=== PATIENT | female | born 1950 | race Hispanic/Latino ===

== ENCOUNTER 2019-03-27 15:24 | Emergency (ER) | payer MEDICARE ==
[~2019-03-27] VITALS: Ht 157.5 cm; Wt 79.0 kg
--- OUTSIDE RECORDS SUMMARY | 2019-03-27 15:27 | XMS REPORT | Clinical Summary ---
Author Author MARCIA [facility] Organization [facility] Address Unknown Phone Unavailable Care Team Providers Care Captain Room Service Name Role Phone Keyonna Mckeon MD PCP Unavailable Allergies No Known Allergies Medications End Date Status Medication Sig Dispensed Refills Start Date Active lisinopril Take 2.5 mg 0 (PRINIVIL,ZESTRIL) 2.5 MG by mouth tablet daily. Active omeprazole (PRILOSEC) 40 Take 40 mg by 0 MG capsule mouth daily. Active albuterol HFA (VENTOLIN Inhale 1 puff 0 HFA) 90 mcg/actuation by mouth via inhaler inhaler every 4 (four) hours as needed for Wheezing or Shortness of Breath. Active cholecalciferol (VITAMIN Take 1,000 0 D3) 1,000 unit tablet Units by mouth daily. Active cyanocobalamin 250 MCG Take 250 mcg 0 tablet by mouth daily. Active fluticasone (FLONASE) 50 2 sprays by 0 mcg/actuation nasal spray Nasal route daily. Active lovastatin (MEVACOR) 20 Take 20 mg by 0 MG tablet mouth nightly. Active aspirin 81 MG EC tablet Take 81 mg by 0 mouth daily. Active glyBURIDE-metFORMIN Take 1 tablet 0 (GLUCOVANCE) 5-500 mg per by mouth 2 7 tablet (two) times daily with breakfast and dinner. 09/09/2018 levoFLOXacin (LEVAQUIN) Take 1 tablet 5 tablet 0 250 MG tablet (250 mg 8 total) by mouth daily for 5 days. Active Problems Problem Noted Date Hemoglobin A1c greater than 9.0%, 11.4% on 09-01-2018 09/03/2018 Tachycardia 09/01/2018 DKA (diabetic ketoacidoses) 09/01/2018 DEN (acute kidney injury) 09/01/2018 Enterocolitis 07/01/2017 Abdominal pain 07/01/2017 Gastroesophageal reflux disease without esophagitis 07/01/2017 Controlled type 2 diabetes mellitus without complication 07/01/2017 Hyperlipidemia 07/01/2017 Fatty liver 07/01/2017 Diarrhea 06/30/2017 Encounters Care Team Description Date Type Specialty Rufino Bennett MD Hite, Wayne K., DO Daniel, Suresh, MD Diabetic ketoacidosis without coma associated with type 2 diabetes mellitus (HCC) (Primary Dx); Tachycardia; Urinary frequency; Hyperglycemia; Hyperlipidemia, unspecified hyperlipidemia type 09/01/2018 Hospital General Internal Medicine - Encounter 09/03/2018 09/01/2018 Orders Only General Internal Medicine after 03/26/2018 Immunizations Name Dates Previously Given Next Due Pneumococcal 07/01/2017 Polysaccharide (Pneumovax) Social History Date Tobacco Use Types Packs/Day Years Used Never Smoker Smokeless Tobacco: Never Used Alcohol Use Drinks/Week oz/Week Comments No Sex Assigned at Date Recorded Not on file Industry Job Start Date Occupation Not on file Not on file Not on file Travel End Travel History Travel Start No recent travel history available. Last Filed Vital Signs Time Taken Vital Sign Reading 09/03/2018 3:36 PM [facility] Blood Pressure 127/73 09/03/2018 3:36 PM [facility] Pulse 89 09/03/2018 3:36 PM [facility] Temperature 37 C (98.6 F) 09/03/2018 3:36 PM [facility] Respiratory Rate 18 09/03/2018 3:36 PM [facility] Oxygen Saturation 93% - Inhaled Oxygen - Concentration 09/03/2018 5:44 AM [facility] C[facility]TER Weight 77.1 kg (169 lb 15.6 oz) 09/01/2018 3:10 PM [facility] Height 152.4 cm (5') 09/03/2018 5:44 AM [facility]TER Body Mass Index 33.2 Plan of Treatment Not on file Procedures Comments Procedure Name Priority Date/Time Associated Diagnosis RHYTHM STRIP - SCAN 09/07/2018 10:20 AM [facility] C[facility]TER POCT-GLUCOSE METER Routine 09/03/2018 5:43 PM [facility]TER POCT-GLUCOSE METER Routine 09/03/2018 3:42 PM [facility]TER POCT-GLUCOSE METER Routine 09/03/2018 12:52 PM [facility] C[facility]TER POCT-GLUCOSE METER Routine 09/03/2018 7:09 AM [facility] C[facility]TER CBC W/PLT COUNT & AUTO Routine 09/03/2018 DIFFERENTIAL 5:49 AM [facility]TER CBC W/PLT COUNT & AUTO Routine 09/03/2018 DIFFERENTIAL 5:49 AM [facility]TER MAGNESIUM Routine 09/03/2018 5:49 AM [facility]TER PHOSPHORUS Routine 09/03/2018 5:49 AM [facility]AT C[facility]TER POCT-GLUCOSE METER Routine 09/02/2018 10:48 PM [facility] C[facility]TER POCT-GLUCOSE METER Routine 09/02/2018 5:12 PM [facility]TER PROCALCITONIN Routine 09/02/2018 12:02 PM [facility] C[facility]TER POCT-GLUCOSE METER Routine 09/02/2018 10:57 AM COAT C[facility]TER KETONE, BLOOD Routine 09/02/2018 9:14 AM COAT C[facility]TER LACTIC ACID, VENOUS Routine 09/02/2018 9:14 AM [facility] C[facility]TER POCT-GLUCOSE METER Routine 09/02/2018 8:55 AM [facility] C[facility]TER POCT-GLUCOSE METER Routine 09/02/2018 7:44 AM CO[facility] C[facility]TER POCT-GLUCOSE METER Routine 09/02/2018 6:12 AM [facility] C[facility]TER POCT-GLUCOSE METER Routine 09/02/2018 5:30 AM COAT C[facility]TER POCT-GLUCOSE METER Routine 09/02/2018 4:48 AM CO[facility] C[facility]TER CBC W/PLT COUNT & AUTO Routine 09/02/2018 DIFFERENTIAL 4:39 AM [facility] C[facility]TER KETONE, BLOOD Routine 09/02/2018 4:39 AM [facility]TER PHOSPHORUS Routine 09/02/2018 4:39 AM [facility]TER MAGNESIUM Routine 09/02/2018 4:39 AM COAT C[facility]TER BASIC METABOLIC PANEL (7) Routine 09/02/2018 4:39 AM [facility]AT C[facility]TER CBC W/PLT COUNT & AUTO Routine 09/02/2018 DIFFERENTIAL 4:39 AM COAT C[facility]TER POCT-GLUCOSE METER Routine 09/02/2018 2:47 AM [facility] C[facility]TER POTASSIUM Routine 09/02/2018 2:44 AM CO[facility] C[facility]TER POCT-GLUCOSE METER Routine 09/02/2018 1:24 AM CO[facility] C[facility]TER POCT-GLUCOSE METER Routine 09/02/2018 12:35 AM [facility]TER KETONE, BLOOD Routine 09/02/2018 12:32 AM [facility]TER PHOSPHORUS Routine 09/02/2018 12:32 AM [facility]TER MAGNESIUM Routine 09/02/2018 12:32 AM [facility] C[facility]TER BASIC METABOLIC PANEL (7) Routine 09/02/2018 12:32 AM COAT C[facility]TER LACTIC ACID, VENOUS Routine 09/02/2018 12:32 AM COAT C[facility]TER CREATINE KINASE (CK), Routine 09/02/2018 TOTAL AND MB 12:32 AM COAT C[facility]TER TROPONIN I STAT 09/02/2018 12:32 AM COAT C[facility]TER POCT-GLUCOSE METER Routine 09/01/2018 11:27 PM [facility]TER POTASSIUM Routine 09/01/2018 10:25 PM [facility] C[facility]TER POCT-GLUCOSE METER Routine 09/01/2018 10:21 PM [facility] C[facility]TER POCT-GLUCOSE METER Routine 09/01/2018 9:14 PM [facility] C[facility]TER POCT-GLUCOSE METER Routine 09/01/2018 7:54 PM [facility]TER HEMOGLOBIN A1C AP Routine 09/01/2018 7:48 PM [facility]TER PHOSPHORUS Routine 09/01/2018 7:48 PM [facility]TER MAGNESIUM Routine 09/01/2018 7:48 PM [facility] C[facility]TER BASIC METABOLIC PANEL (7) Routine 09/01/2018 7:48 PM CO[facility] C[facility]TER ECG 12-LEAD Routine 09/01/2018 7:00 PM COAT C[facility]TER Procedure Note - Interface, External Ris In - 09/01/2018 10:36 PM COAT C[facility]TER Ventricula r Rate 124 BPM Atrial Rate 124 BPM P-R Interval 154 ms QRS Duration 72 ms Q-T Interval 312 ms QTC Calculatio n(Bazett) 448 ms P [place] 40 degrees R [place] -35 degrees T [place] 27 degrees Sinus tachycardi a Left axis deviation Low voltage QRS Cannot rule out Anterior infarct , age undetermin ed Abnormal ECG No previous ECGs available ECG 12-LEAD STAT 09/01/2018 7:00 PM [facility] C[facility]TER URINALYSIS W/ MICROSCOPIC STAT 09/01/2018 7:00 PM [facility]AT C[facility]TER XR CHEST 1 VIEW STAT 09/01/2018 PORTABLE/BEDSIDE 6:41 PM [facility]TER POTASSIUM Routine 09/01/2018 6:22 PM [facility] C[facility]TER GLUCOSE Routine 09/01/2018 6:22 PM CO[facility] C[facility]TER TROPONIN I STAT 09/01/2018 6:22 PM COAT C[facility]TER POCT-GLUCOSE METER Routine 09/01/2018 6:01 PM [facility] C[facility]TER CBC W/PLT COUNT & AUTO STAT 09/01/2018 DIFFERENTIAL 3:36 PM CO[facility] C[facility]TER CREATINE KINASE (CK), STAT 09/01/2018 TOTAL AND MB 3:36 PM [facility]TER TROPONIN I STAT 09/01/2018 3:36 PM [facility]TER KETONE, BLOOD STAT 09/01/2018 3:36 PM [facility] C[facility]TER COMPREHENSIVE METABOLIC STAT 09/01/2018 PANEL 3:36 PM [facility]TER LACTIC ACID, VENOUS STAT 09/01/2018 3:36 PM [facility] C[facility]TER CBC W/PLT COUNT & AUTO STAT 09/01/2018 DIFFERENTIAL 3:36 PM [facility]TER BLOOD CULTURE STAT 09/01/2018 3:36 PM [facility]TER CRITICAL CARE Routine 09/01/2018 3:32 PM [facility] C[facility]TER POCT-GLUCOSE METER Routine 09/01/2018 3:27 PM COAT C[facility]TER after 03/26/2018 Results * RHYTHM STRIP - SCAN (09/07/2018 10:20 AM COAT C[facility]TER) Narrative Performed At * POC-Glucose meter (09/03/2018 5:43 PM COAT C[facility]TER) Only the most recent of 21 results within the time period is included. POC-Glucose Meter 222 (H)Comment: TESTED AT 70 - 110 mg/dL [facility] [address] [facility] [id number] Specimen Blood Performing Organization Address City/State/Zipcode Phone Number [address] [phone] [facility] * CBC with platelet count + automated diff (09/03/2018 5:49 AM COAT CUTTER) Only the most recent of 3 results within the time period is included. WBC 4.4 3.5 - 10.5 K/L [facility] RBC 4.63 3.93 - 5.22 M/L [facility] Hemoglobin 14.6 11.2 - 15.7 GM/DL [facility] Hematocrit 42.5 34.1 - 44.9 % [facility] MCV 91.8 79.4 - 94.8 fL [facility] MCH 31.5 25.6 - 32.2 pg [facility] MCHC 34.4 32.2 - 35.5 GM/DL [facility] RDW 12.3 11.7 - 14.4 % [facility] Platelets 164 150 - 450 K/CU MM [facility] MPV 10.9 9.4 - 12.3 fL [facility] nRBC 0 0 - 0 /100 WBC [facility] % Neutros 54 % [facility] % Lymphs 32 % [facility] % Monos 10 % [facility] % Eos 3 % [facility] % Baso 1 % [facility] # Neutros 2.40 1.56 - 6.13 K/L [facility] # Lymphs 1.44 1.18 - 3.74 K/L [facility] # Monos 0.43 (H) 0.24 - 0.36 K/L [facility] # Eos 0.12 0.04 - 0.36 K/L [facility] # Baso 0.02 0.01 - 0.08 K/L [facility] Immature 1 0 - 1 % [facility] Granulocytes-[facility] Specimen Blood Performing Organization Address City/[facility]/Zipcode Phone Number [place] [phone] [facility] * Phosphorus (09/03/2018 5:49 AM COAT CUTTER) Only the most recent of 4 results within the time period is included. Phosphorus 2.7 2.3 - 4.7 mg/dL [facility] Specimen Blood Performing Organization Address City/[facility]/Zipcode Phone Number [address] [address] [facility] * Magnesium (09/03/2018 5:49 AM COAT CUTTER) Only the most recent of 4 results within the time period is included. Magnesium 2.1 1.6 - 2.6 mg/dL [facility] Specimen Blood Performing Organization Address City/[facility] Phone Number [address] * Procalcitonin (09/02/2018 12:02 PM CO[facility] C[facility]TER) Procalcitonin 3.10 (H) <0.05 ng/mL [facility] Specimen Blood Narrative Performed At SEPSIS RISK (ng/mL) [facility] Low:0.05-0.50 [facility] Intermediate: 0.51-2.00 High: >=2.01 Performing Organization Address [facility] Phone Number [address] * Lactic acid, venous, whole blood (09/02/2018 9:14 AM COAT CUTTER) Only the most recent of 3 results within the time period is included. Lactate, Venous 0.9 0.5 - 2.2 mmol/L [facility] Specimen Blood Performing Organization Address [facility] Phone Number [address] * Ketone, blood (09/02/2018 9:14 AM COAT CUTTER) Only the most recent of 4 results within the time period is included. Ketones, Blood 0.3 <0.4 mmol/L [facility] Specimen Blood Performing Organization Address City/[facility] [place] [place] [address] [phone] [place] [address] * Basic Metabolic Panel (09/02/2018 4:39 AM COAT C[facility]TER) Only the most recent of 3 results within the time period is included. Sodium 139 136 - 145 meq/L [facility] Potassium 3.7 3.5 - 5.1 meq/L [facility] Chloride 112 (H) 98 - 107 meq/L [facility] CO2 22 22 - 29 meq/L [facility] BUN 11 7 - 21 mg/dL [facility] Creatinine 0.69 0.57 - 1.25 mg/dL [facility] Glucose 222 (H) 70 - 105 mg/dL [facility] Calcium 8.5 8.4 - 10.2 mg/dL [facility] EGFR 85Comment: ESTIMATED GFR IS mL/min/1.[address] [facility] NOT ACCURATE CREATININE [facility] CLEARANCE IN PREDICTING GLOMERULAR FILTRATION RATE. ESTIMATED GFR IS NOT APPLICABLE FOR DIALYSIS PATIENTS. Specimen Blood Performing Organization Address City/[facility]/Zipcode Phone Number [address] * Potassium (09/02/2018 2:44 AM COAT CUTTER) Only the most recent of 3 results within the time period is included. Potassium 3.6 3.5 - 5.1 meq/L [facility] Specimen Blood Performing Organization Address [facility] Phone Number [address] * Troponin I (09/02/2018 12:32 AM COAT CUTTER) Only the most recent of 3 results within the time period is included. Troponin I <0.01 0.00 - 0.03 ng/mL [facility] Specimen Blood Narrative Performed At Troponin I (TnI) levels must be interpreted in the context of the presenting [facility] symptoms and the clinical findings. Elevated TnI levels indicate myocardial [facility] damage, but are not specific for ischemic heart disease. Elevated TnI levels are seen in patients with other cardiac conditions (including myocarditis and congestive heart failure), and slight TnI elevations occur in patients with other conditions, including sepsis, renal failure, acidosis, acute neurological disease, and persistent tachyarrhythmia. Performing Organization Address City/[facility] Phone Number [facility] [address] [place] [address] * Creatine Kinase (CK), Total and MB (09/02/2018 12:32 AM COAT CUTTER) Only the most recent of 2 results within the time period is included. Total CK 55 29 - 200 U/L [facility] CK-MB 1.0 0.0 - 6.6 ng/mL [facility] MB Relative Index 1.8 % [facility] Specimen Blood Narrative Performed At CK-MB Reference Range: [facility] <6.7Normal [facility] 6.7-10.0Borderline >10.0 Abnormal Performing Organization Address City/State/Zipcode Phone Number [address] * Hemoglobin A1c (09/01/2018 7:48 PM COAT C[facility]TER) Hemoglobin A1C 11.4 (H) 4.3 - 6.1 % [facility] Specimen Blood Performing Organization Address City/State/[facility] Phone Number [address] * ECG 12 lead (09/01/2018 7:00 PM COAT CUTTER) Specimen Narrative Performed At Ventricular Rate 124 BPM GE MUSE Atrial Rate 124 BPM P-R Interval 154 ms QRS Duration 72 ms Q-T Interval 312 ms QTC Calculation(Bazett) 448 ms P [place] 40 degrees R [place] -35 degrees T [place] 27 degrees Sinus tachycardia Left axis deviation Low voltage QRS Cannot rule out Anterior infarct , age undetermined Abnormal ECG No previous ECGs available Confirmed by Reinaldo SOLANO MICHAEL ([id number]) on 09/02/2018 7:00:17 AM Procedure Note Interface, External Ris In - 09/02/2018 8:05 AM COAT CUTTER Ventricular Rate 124 BPM Atrial Rate 124 BPM P-R Interval 154 ms QRS Duration 72 ms Q-T Interval 312 ms QTC Calculation(Bazett) 448 ms P [place] 40 degrees R [place] -35 degrees T [place] 27 degrees Sinus tachycardia Left axis deviation Low voltage QRS Cannot rule out Anterior infarct , age undetermined Abnormal ECG No previous ECGs available Confirmed by Reinaldo SOLANO MICHAEL ([id number]) on 09/02/2018 7:00:17 AM Performing Organization Address City/[facility]/Zipcode Phone Number [facility] * Urinalysis w/Microscopic (09/01/2018 7:00 PM COAT CUTTER) Color, UA Light Yellow [facility] Clarity, UA Clear [facility] Specific [place], UA 1.018 1.001 - 1.035 [facility] pH, UA 5.5 5.0 - 8.0 [facility] Protein, UA Negative Negative [facility] Glucose, UA >1000 mg/dL (A) Negative [facility] Ketones, UA 20 mg/dL (A) Negative [facility] Bilirubin, UA Negative Negative [facility] Blood, UA Negative Negative [facility] Nitrite, UA Positive (A) Negative [facility] Leukocytes, UA Trace (A) Negative [facility] Urobilinogen, UA 0.2 0.2 - 1.0 mg/dL [facility] RBC, UA 0 /HPF [facility] WBC, UA 18 /HPF [facility] Bacteria, UA Rare [facility] Specimen Source Urine, Voided [facility] Specimen Urine Performing Organization Address City/[facility]/Zipcode Phone Number [facility] [address] [place] [address] MED[facility] * XR chest 1 view portable / bedside (09/01/2018 6:41 PM COAT CUTTER) Specimen Narrative Performed At FINAL REPORT [facility] History: Chills and urinary frequency. Comparison: None. Findings: A single view of the chest is submitted. The cardiomediastinal contours are unremarkable. Curvilinear opacities in both lower lungs suggest atelectasis or scarring. There is no focal consolidation, pneumothorax, large pleural effusion or acute bony abnormality. Signed: Jefry Dasilva MD Report Verified Date/Time:09/01/2018 20:02:38 Reading Location: [address] Reading Room Procedure Note Interface, External Ris In - 09/01/2018 8:04 PM COAT C[facility]TER FINAL REPORT History: Chills and urinary frequency. Comparison: None. Findings: A single view of the chest is submitted. The cardiomediastinal contours are unremarkable. Curvilinear opacities in both lower lungs suggest atelectasis or scarring. There is no focal consolidation, pneumothorax, large pleural effusion or acute bony abnormality. Signed: Jefry Dasilva MD Report Verified Date/Time: 09/01/2018 20:02:38 Reading Location: [address] Reading Room Performing Organization Address City/[facility] Phone Number [facility] * Glucose, serum (09/01/2018 6:22 PM COAT CUTTER) Glucose 436 (HH) 70 - 105 mg/dL [facility] Specimen Blood Narrative Performed At If last glucose was less than 500, may do bedside glucose instead of serum [facility] glucose. [facility] Performing Organization Address [facility] Phone Number [address] [address] [facility] * Blood culture (09/01/2018 3:36 PM COAT CUTTER) Result No growth in 5 days [facility] Specimen Blood Performing Organization Address [facility]/Zipcode Phone Number [address] [address] [facility] * Comprehensive metabolic panel (09/01/2018 3:36 PM COAT CUTTER) Protein, Total 6.4 6.0 - 8.3 gm/dL [facility] Albumin 4.0 3.5 - 5.0 g/dL [facility] Alkaline Phosphatase 104 40 - 150 U/L [facility] Total Bilirubin 0.7 0.2 - 1.2 mg/dL [facility] Sodium 138 136 - 145 meq/L [facility] Potassium 4.2 3.5 - 5.1 meq/L [facility] Chloride 105 98 - 107 meq/L [facility] CO2 21 (L) 22 - 29 meq/L [facility] BUN 18 7 - 21 mg/dL [facility] Creatinine 1.26 (H) 0.57 - 1.25 mg/dL [facility] Glucose 416 (HH) 70 - 105 mg/dL [facility] Calcium 9.2 8.4 - 10.2 mg/dL [facility] AST 27 5 - 34 U/L [facility] ALT 48 6 - 55 U/L [facility] EGFR Comment: INSUFFICIENT CLINICAL mL/min/1.[address] [facility] DATA TO CALCULATE ESTIMATED [facility] GFR. Specimen Blood Performing Organization Address City/State/Zipcode Phone Number [facility] [address] [place] [address] [facility] * CRITICAL CARE (09/01/2018 3:32 PM COAT CUTTER) Narrative Performed At Rufino Bennett MD 09/01/20184:57 PM Critical Care Performed by: Rufino Bennett MD Authorized by: Rufino Bennett MD Total critical care time: 40 minutes Critical care time was exclusive of separately billable procedures and treating other patients and teaching time. Critical care was necessary to treat or prevent imminent or life-threatening deterioration of the following conditions: dehydration and metabolic crisis. Critical care was time spent personally by me on the following activities: development of treatment plan with patient or surrogate, discussions with consultants, discussions with primary provider, interpretation of cardiac output measurements, evaluation of patient's response to treatment, examination of patient, obtaining history from patient or surrogate, ordering and performing treatments and interventions, ordering and review of laboratory studies, ordering and review of radiographic studies, pulse oximetry, re-evaluation of patient's condition and review of old charts. after 03/26/2018 Insurance Payer Benefit Subscriber ID Type Phone Address Plan / Group MEDICARE MEDICARE xxxxxxxxxx Medicare PART A [employer] - MGD CARE [employer]H xxxxxxxxxxx HMO/POS NETWORK Advance Directives For more information, please contact: [facility] [address] [place] [address] Date Inactivated Comments Code Status Date Activated Full Code 09/01/2018 5:47 PM This code status was determined by: Patient 07/02/2017 3:42 PM Full Code 06/30/2017 2:42 AM This code status was determined by: Patient
--- OUTSIDE RECORDS SUMMARY | 2019-03-27 15:27 | XMS REPORT ---
[facility] Address Unknown Phone Unavailable Care Team Providers Care Conservation Coordinator Name Role Phone ESTELLA MIRANDA Unavailable Unavailable PALOMA BURNETT Unavailable Unavailable Problems This patient has no known problems. Allergies, Adverse Reactions, Alerts This patient has no known allergies or adverse reactions. Medications This patient has no known medications. Results Test Description Test Time Test Comments Text Results Atomic Results Result Comments BLOOD CULTURE 2018-09-06 23:01:00 CULTURE (BEAKER) (test tfqa=9764) No growth in 5 days POCT-GLUCOSE [id number] 17:49:00* Test Item Value Reference Range Comments POC-GLUCOSE METER (BEAKER) (test xrqz=0389) 222 mg/dL 70-110 TESTED AT [address] [address] POCT-GLUCOSE [id number] 17:49:00* Test Item Value Reference Range Comments POC-GLUCOSE METER (BEAKER) (test gnvo=6485) 218 mg/dL 70-110 TESTED AT [address] [address] HEMOGLOBIN [id number] 17:21:00* Test Item Value Reference Range Comments HEMOGLOBIN A1C (BEAKER) (test lmyr=021) 11.4 % 4.3-6.1 POCT-GLUCOSE [id number] 12:54:00* Test Item Value Reference Range Comments POC-GLUCOSE METER (BEAKER) (test dswl=7531) 211 mg/dL 70-110 TESTED AT [address] [address] POCT-GLUCOSE [id number] 07:25:00* Test Item Value Reference Range Comments POC-GLUCOSE METER (BEAKER) (test zcop=7875) 254 mg/dL 70-110 TESTED AT [address] [address] [id number] 06:49:00* Test Item Value Reference Range Comments PHOSPHORUS (BEAKER) (test lzwd=306) 2.7 mg/dL 2.3-4.7 [id number] 06:49:00* Test Item Value Reference Range Comments MAGNESIUM (BEAKER) (test kvsk=911) 2.1 mg/dL 1.6-2.6 CBC W/PLT COUNT & AUTO [id number] 06:16:00* Test Item Value Reference Range Comments WHITE BLOOD CELL COUNT (BEAKER) (test drvh=959) 4.4 K/ L 3.5-10.5 RED BLOOD CELL COUNT (BEAKER) (test jaul=956) 4.63 M/ L 3.93-5.22 HEMOGLOBIN (BEAKER) (test gkcp=044) 14.6 GM/DL 11.2-15.7 HEMATOCRIT (BEAKER) (test qczs=456) 42.5 % 34.1-44.9 MEAN CORPUSCULAR VOLUME (BEAKER) (test jtwv=959) 91.8 fL 79.4-94.8 MEAN CORPUSCULAR HEMOGLOBIN (BEAKER) (test xntd=011) 31.5 pg 25.6-32.2 MEAN CORPUSCULAR HEMOGLOBIN CONC (BEAKER) (test skzi=909) 34.4 GM/DL 32.2-35.5 RED CELL DISTRIBUTION WIDTH (BEAKER) (test lkac=249) 12.3 % 11.7-14.4 PLATELET COUNT (BEAKER) (test kbqv=826) 164 K/CU MM 150-450 MEAN PLATELET VOLUME (BEAKER) (test zkrf=552) 10.9 fL 9.4-12.3 NUCLEATED RED BLOOD CELLS (BEAKER) (test rrkw=825) 0 /100 WBC 0-0 NEUTROPHILS RELATIVE PERCENT (BEAKER) (test llyn=552) 54 % LYMPHOCYTES RELATIVE PERCENT (BEAKER) (test nekq=826) 32 % MONOCYTES RELATIVE PERCENT (BEAKER) (test sbqj=752) 10 % EOSINOPHILS RELATIVE PERCENT (BEAKER) (test exii=360) 3 % BASOPHILS RELATIVE PERCENT (BEAKER) (test zawd=028) 1 % NEUTROPHILS ABSOLUTE COUNT (BEAKER) (test idxg=010) 2.40 K/ L 1.56-6.13 LYMPHOCYTES ABSOLUTE COUNT (BEAKER) (test rtcm=872) 1.44 K/ L 1.18-3.74 MONOCYTES ABSOLUTE COUNT (BEAKER) (test kdub=301) 0.43 K/ L 0.24-0.36 EOSINOPHILS ABSOLUTE COUNT (BEAKER) (test dtlu=254) 0.12 K/ L 0.04-0.36 BASOPHILS ABSOLUTE COUNT (BEAKER) (test tjyy=929) 0.02 K/ L 0.01-0.08 IMMATURE GRANULOCYTES-RELATIVE PERCENT (BEAKER) (test rcwj=4637) 1 % 0-1 POCT-GLUCOSE [id number] 23:03:00* Test Item Value Reference Range Comments POC-GLUCOSE METER (BEAKER) (test ysmm=6422) 184 mg/dL 70-110 TESTED AT [address] [address] POCT-GLUCOSE [id number] 17:16:00* Test Item Value Reference Range Comments POC-GLUCOSE METER (BEAKER) (test hyps=4208) 177 mg/dL 70-110 TESTED AT [address] [address] [id number] 13:48:00* Test Item Value Reference Range Comments PROCALCITONIN (BEAKER) (test yzxd=1843) 3.10 ng/mL <0.05 SEPSIS RISK (ng/mL)Low: 0.05-0.50Intermediate: 0.51-2.00High: > =2.01POCT-GLUCOSE [id number] 11:07:00* Test Item Value Reference Range Comments POC-GLUCOSE METER (BEAKER) (test xkbt=9483) 222 mg/dL 70-110 TESTED AT [address] [address] LACTIC ACID, VENOUS, WHOLE [id number] 09:59:00* Test Item Value Reference Range Comments LACTATE BLOOD VENOUS (2) (BEAKER) (test zkrk=9309) 0.9 mmol/L 0.5-2.2 KETONE, [id number] 09:36:00* Test Item Value Reference Range Comments KETONES, BLOOD (BEAKER) (test cshs=2298) 0.3 mmol/L <0.4 POCT-GLUCOSE [id number] 09:18:00* Test Item Value Reference Range Comments POC-GLUCOSE METER (BEAKER) (test fvvg=8890) 220 mg/dL 70-110 TESTED AT [address] [address] POCT-GLUCOSE [id number] 07:46:00* Test Item Value Reference Range Comments POC-GLUCOSE METER (BEAKER) (test ychc=5933) 224 mg/dL 70-110 TESTED AT [address] [address] POCT-GLUCOSE [id number] 06:36:00* Test Item Value Reference Range Comments POC-GLUCOSE METER (BEAKER) (test jhse=4310) 241 mg/dL 70-110 TESTED AT [address] [address] [id number] 05:45:00* Test Item Value Reference Range Comments PHOSPHORUS (BEAKER) (test gffj=225) 2.3 mg/dL 2.3-4.7 [id number] 05:45:00* Test Item Value Reference Range Comments MAGNESIUM (BEAKER) (test fugt=295) 2.5 mg/dL 1.6-2.6 BASIC METABOLIC [id number] 05:45:00* Test Item Value Reference Range Comments SODIUM (BEAKER) (test puce=732) 139 meq/L 136-145 POTASSIUM (BEAKER) (test julr=281) 3.7 meq/L 3.5-5.1 CHLORIDE (BEAKER) (test ikxc=102) 112 meq/L 98-107 CO2 (BEAKER) (test himo=148) 22 meq/L 22-29 BLOOD UREA NITROGEN (BEAKER) (test slmu=478) 11 mg/dL 7-21 CREATININE (BEAKER) (test lgfm=352) 0.69 mg/dL 0.57-1.25 GLUCOSE RANDOM (BEAKER) (test qeib=510) 222 mg/dL 70-105 CALCIUM (BEAKER) (test ekaa=696) 8.5 mg/dL 8.4-10.2 EGFR (BEAKER) (test gduz=3815) 85 mL/min/1.73 sq m ESTIMATED GFR IS NOT ACCURATE CREATININE CLEARANCE IN PREDICTING GLOMERULAR FILTRATION RATE. ESTIMATED GFR IS NOT APPLICABLE FOR DIALYSIS PATIENTS. POCT-GLUCOSE [id number] 05:37:00* Test Item Value Reference Range Comments POC-GLUCOSE METER (BEAKER) (test iqkw=2778) 238 mg/dL 70-110 TESTED AT [address] [address] CBC W/PLT COUNT & AUTO [id number] 05:19:00* Test Item Value Reference Range Comments WHITE BLOOD CELL COUNT (BEAKER) (test xius=728) 6.8 K/ L 3.5-10.5 RED BLOOD CELL COUNT (BEAKER) (test tugf=828) 4.03 M/ L 3.93-5.22 HEMOGLOBIN (BEAKER) (test hamb=977) 12.8 GM/DL 11.2-15.7 HEMATOCRIT (BEAKER) (test iecf=127) 37.2 % 34.1-44.9 MEAN CORPUSCULAR VOLUME (BEAKER) (test yevb=253) 92.3 fL 79.4-94.8 MEAN CORPUSCULAR HEMOGLOBIN (BEAKER) (test oika=869) 31.8 pg 25.6-32.2 MEAN CORPUSCULAR HEMOGLOBIN CONC (BEAKER) (test rvtl=548) 34.4 GM/DL 32.2-35.5 RED CELL DISTRIBUTION WIDTH (BEAKER) (test wmlo=574) 12.5 % 11.7-14.4 PLATELET COUNT (BEAKER) (test napi=098) 153 K/CU MM 150-450 MEAN PLATELET VOLUME (BEAKER) (test fqwf=079) 10.8 fL 9.4-12.3 NUCLEATED RED BLOOD CELLS (BEAKER) (test wwet=853) 0 /100 WBC 0-0 NEUTROPHILS RELATIVE PERCENT (BEAKER) (test emcs=076) 65 % LYMPHOCYTES RELATIVE PERCENT (BEAKER) (test hgru=338) 26 % MONOCYTES RELATIVE PERCENT (BEAKER) (test ltbn=373) 8 % EOSINOPHILS RELATIVE PERCENT (BEAKER) (test ajmi=112) 1 % BASOPHILS RELATIVE PERCENT (BEAKER) (test nrso=942) 0 % NEUTROPHILS ABSOLUTE COUNT (BEAKER) (test glnz=222) 4.39 K/ L 1.56-6.13 LYMPHOCYTES ABSOLUTE COUNT (BEAKER) (test nlkh=690) 1.75 K/ L 1.18-3.74 MONOCYTES ABSOLUTE COUNT (BEAKER) (test lfef=302) 0.53 K/ L 0.24-0.36 EOSINOPHILS ABSOLUTE COUNT (BEAKER) (test hzul=830) 0.09 K/ L 0.04-0.36 BASOPHILS ABSOLUTE COUNT (BEAKER) (test yciv=390) 0.01 K/ L 0.01-0.08 IMMATURE GRANULOCYTES-RELATIVE PERCENT (BEAKER) (test nqgf=0325) 0 % 0-1 KETONE, [id number] 05:00:00* Test Item Value Reference Range Comments KETONES, BLOOD (BEAKER) (test kmco=6969) 0.3 mmol/L <0.4 POCT-GLUCOSE [id number] 04:57:00* Test Item Value Reference Range Comments POC-GLUCOSE METER (BEAKER) (test lmuk=7300) 236 mg/dL 70-110 TESTED AT [address] [address] [id number] 03:06:00* Test Item Value Reference Range Comments POTASSIUM (BEAKER) (test aqyx=431) 3.6 meq/L 3.5-5.1 CREATINE KINASE (CK), TOTAL AND [id number] 03:06:00* Test Item Value Reference Range Comments CREATINE KINASE TOTAL (BEAKER) (test vegh=338) 55 U/L 29-200 CREATINE KINASE-MB (BEAKER) (test oyxu=626) 1.0 ng/mL 0.0-6.6 CREATINE KINASE-MB INDEX (BEAKER) (test nyly=154) 1.8 % CK-MB Reference Range:<6.7 Normal6.7-10.0 Borderline>10.0 Abnormal POCT-GLUCOSE [id number] 02:49:00* Test Item Value Reference Range Comments POC-GLUCOSE METER (BEAKER) (test yldq=7549) 262 mg/dL 70-110 TESTED AT [address] [address] POCT-GLUCOSE [id number] 01:26:00* Test Item Value Reference Range Comments POC-GLUCOSE METER (BEAKER) (test biff=7230) 272 mg/dL 70-110 TESTED AT [address] [address] TROPONIN [id number] 01:14:00* Test Item Value Reference Range Comments TROPONIN I (BEAKER) (test glac=277) < ng/mL 0.00-0.03 Troponin I (TnI) levels must be interpreted in the context of the presenting sym ptoms and the clinical findings. Elevated TnI levels indicate myocardial damage, but are not specific for ischemic heart disease. Elevated TnI levels are seen in patients with other cardiac conditions (including myocarditis and congestive h eart failure), and slight TnI elevations occur in patients with other conditions , including sepsis, renal failure, acidosis, acute neurological disease, and per sistent tachyarrhythmia.[id number] 01:06:00* Test Item Value Reference Range Comments PHOSPHORUS (BEAKER) (test orft=796) 2.3 mg/dL 2.3-4.7 [id number] 01:06:00* Test Item Value Reference Range Comments MAGNESIUM (BEAKER) (test wtso=769) 1.8 mg/dL 1.6-2.6 BASIC METABOLIC [id number] 01:06:00* Test Item Value Reference Range Comments SODIUM (BEAKER) (test uvje=704) 138 meq/L 136-145 POTASSIUM (BEAKER) (test jqed=075) 3.8 meq/L 3.5-5.1 CHLORIDE (BEAKER) (test fqri=065) 109 meq/L 98-107 CO2 (BEAKER) (test ftnc=533) 23 meq/L 22-29 BLOOD UREA NITROGEN (BEAKER) (test rkwo=509) 16 mg/dL 7-21 CREATININE (BEAKER) (test mdly=523) 0.80 mg/dL 0.57-1.25 GLUCOSE RANDOM (BEAKER) (test cjjx=801) 267 mg/dL 70-105 CALCIUM (BEAKER) (test zojs=359) 8.3 mg/dL 8.4-10.2 EGFR (BEAKER) (test uvzc=9337) 72 mL/min/1.73 sq m ESTIMATED GFR IS NOT ACCURATE CREATININE CLEARANCE IN PREDICTING GLOMERULAR FILTRATION RATE. ESTIMATED GFR IS NOT APPLICABLE FOR DIALYSIS PATIENTS. LACTIC ACID, VENOUS, WHOLE [id number] 00:59:00* Test Item Value Reference Range Comments LACTATE BLOOD VENOUS (2) (BEAKER) (test jtcr=5595) 1.0 mmol/L 0.5-2.2 KETONE, [id number] 00:55:00* Test Item Value Reference Range Comments KETONES, BLOOD (BEAKER) (test bzlj=6180) 0.2 mmol/L <0.4 POCT-GLUCOSE [id number] 00:44:00* Test Item Value Reference Range Comments POC-GLUCOSE METER (BEAKER) (test wvon=5841) 300 mg/dL 70-[address] [facility] [address] [facility] [address] POCT-GLUCOSE [id number] 23:37:00* Test Item Value Reference Range Comments POC-GLUCOSE METER (BEAKER) (test gnbm=9778) 306 mg/dL 70-110 Notified [place]/TESTED AT [address] [address] [id number] 22:47:00* Test Item Value Reference Range Comments POTASSIUM (BEAKER) (test egqq=811) 4.0 meq/L 3.5-5.1 Specimen slightly hemolyzed POCT-GLUCOSE [id number] 22:31:00* Test Item Value Reference Range Comments POC-GLUCOSE METER (BEAKER) (test ekiu=6773) 321 mg/dL 70-110 TESTED AT [address] [address] POCT-GLUCOSE [id number] 21:23:00* Test Item Value Reference Range Comments POC-GLUCOSE METER (BEAKER) (test byss=3463) 158 mg/dL 70-110 TESTED AT [address] [address] BASIC METABOLIC [id number] 20:41:00* Test Item Value Reference Range Comments SODIUM (BEAKER) (test pnwi=398) 137 meq/L 136-145 POTASSIUM (BEAKER) (test xjnq=065) 3.8 meq/L 3.5-5.1 CHLORIDE (BEAKER) (test ocqd=249) 109 meq/L 98-107 CO2 (BEAKER) (test tgzf=546) 21 meq/L 22-29 BLOOD UREA NITROGEN (BEAKER) (test yxme=431) 19 mg/dL 7-21 CREATININE (BEAKER) (test ofat=591) 1.00 mg/dL 0.57-1.25 GLUCOSE RANDOM (BEAKER) (test dyvl=979) 413 mg/dL 70-105 CALCIUM (BEAKER) (test rqku=658) 8.6 mg/dL 8.4-10.2 EGFR (BEAKER) (test jlva=2878) 55 mL/min/1.73 sq m ESTIMATED GFR IS NOT ACCURATE CREATININE CLEARANCE IN PREDICTING GLOMERULAR FILTRATION RATE. ESTIMATED GFR IS NOT APPLICABLE FOR DIALYSIS PATIENTS. If last glucose was less than 500, may do bedside glucose instead of serum gluco se.[id number] 20:39:00* Test Item Value Reference Range Comments PHOSPHORUS (BEAKER) (test yffq=388) 1.6 mg/dL 2.3-4.7 If last glucose was less than 500, may do bedside glucose instead of serum gluco se.[id number] 20:39:00* Test Item Value Reference Range Comments MAGNESIUM (BEAKER) (test hjac=794) 1.8 mg/dL 1.6-2.6 If last glucose was less than 500, may do bedside glucose instead of serum gluco se.RAD, CHEST, 1 VIEW, NON [id number] 20:02:00Reason for exam:->CHILLSReason for exam:->URINARY FREQUENCYShould this be performed at the bedside?->YesFINAL REPORT History: Chills and urinary frequency. Comp arison: None. Findings: A single view of the chest is submitted. The cardiomedia stinal contours are unremarkable. Curvilinear opacities in both lower lungs sug gest atelectasis or scarring. There is no focal consolidation, pneumothorax, l arge pleural effusion or acute bony abnormality. Signed: Derian Dasilva MDReport Verified Date/Time: 09/01/2018 20:02:38 Reading Location: [address] on Reading Room Electronically signed by: DERIAN DASILVA M.D. on 8 08:02 PM POCT-GLUCOSE [id number] 20:00:00* Test Item Value Reference Range Comments POC-GLUCOSE METER (BEAKER) (test axgl=0152) 379 mg/dL 70-[address] [facility] [address] [facility] [address] URINALYSIS W/ [id number] 19:21:00* Test Item Value Reference Range Comments COLOR (BEAKER) (test xbak=168) Light Yellow CLARITY (BEAKER) (test diui=996) Clear SPECIFIC GRAVITY UA (BEAKER) (test pdnb=831) 1.018 1.001-1.035 PH UA (BEAKER) (test yfsb=054) 5.5 5.0-8.0 PROTEIN UA (BEAKER) (test oirb=403) Negative Negative GLUCOSE UA (BEAKER) (test hvrr=491) >1000 mg/dL Negative KETONES UA (BEAKER) (test zkig=632) 20 mg/dL Negative BILIRUBIN UA (BEAKER) (test lhti=145) Negative Negative BLOOD UA (BEAKER) (test avkd=041) Negative Negative NITRITE UA (BEAKER) (test ulam=273) Positive Negative LEUKOCYTE ESTERASE UA (BEAKER) (test nibn=200) Trace Negative UROBILINOGEN UA (BEAKER) (test dmxy=818) 0.2 mg/dL 0.2-1.0 RBC UA (BEAKER) (test jyah=986) 0 /HPF WBC UA (BEAKER) (test dspd=167) 18 /HPF BACTERIA (BEAKER) (test eacy=468) Rare SOURCE(BEAKER) (test bxin=1283) Urine, Voided [id number] 19:11:00* Test Item Value Reference Range Comments GLUCOSE RANDOM (BEAKER) (test kucj=098) 436 mg/dL 70-105 If last glucose was less than 500, may do bedside glucose instead of serum gluco se.TROPONIN [id number] 19:05:00* Test Item Value Reference Range Comments TROPONIN I (BEAKER) (test gocr=293) < ng/mL 0.00-0.03 Troponin I (TnI) levels must be interpreted in the context of the presenting sym ptoms and the clinical findings. Elevated TnI levels indicate myocardial damage, but are not specific for ischemic heart disease. Elevated TnI levels are seen in patients with other cardiac conditions (including myocarditis and congestive h eart failure), and slight TnI elevations occur in patients with other conditions , including sepsis, renal failure, acidosis, acute neurological disease, and per sistent tachyarrhythmia.If last glucose was less than 500, may do bedside glucos e instead of serum glucose.[id number] 18:53:00* Test Item Value Reference Range Comments POTASSIUM (BEAKER) (test hdfh=837) 4.2 meq/L 3.5-5.1 If last glucose was less than 500, may do bedside glucose instead of serum gluco se.POCT-GLUCOSE [id number] 18:03:00* Test Item Value Reference Range Comments POC-GLUCOSE METER (BEAKER) (test asah=4777) 391 mg/dL 70-[address] [facility] [address] [place] [address] CREATINE KINASE (CK), TOTAL AND [id number] 16:25:00* Test Item Value Reference Range Comments CREATINE KINASE TOTAL (BEAKER) (test tghg=730) 70 U/L 29-200 CREATINE KINASE-MB (BEAKER) (test fjmh=176) 1.2 ng/mL 0.0-6.6 CREATINE KINASE-MB INDEX (BEAKER) (test nzxs=943) 1.7 % CK-MB Reference Range:<6.7 Normal6.7-10.0 Borderline>10.0 Abnormal TROPONIN [id number] 16:25:00* Test Item Value Reference Range Comments TROPONIN I (BEAKER) (test emyj=601) < ng/mL 0.00-0.03 Troponin I (TnI) levels must be interpreted in the context of the presenting sym ptoms and the clinical findings. Elevated TnI levels indicate myocardial damage, but are not specific for ischemic heart disease. Elevated TnI levels are seen in patients with other cardiac conditions (including myocarditis and congestive h eart failure), and slight TnI elevations occur in patients with other conditions , including sepsis, renal failure, acidosis, acute neurological disease, and per sistent tachyarrhythmia.COMPREHENSIVE METABOLIC [id number] 16:21:00* Test Item Value Reference Range Comments TOTAL PROTEIN (BEAKER) (test mpln=539) 6.4 gm/dL 6.0-8.3 ALBUMIN (BEAKER) (test jvsh=7013) 4.0 g/dL 3.5-5.0 ALKALINE PHOSPHATASE (BEAKER) (test bepd=057) 104 U/L 40-150 BILIRUBIN TOTAL (BEAKER) (test rnqh=701) 0.7 mg/dL 0.2-1.2 SODIUM (BEAKER) (test exbv=365) 138 meq/L 136-145 POTASSIUM (BEAKER) (test ytkp=066) 4.2 meq/L 3.5-5.1 CHLORIDE (BEAKER) (test otqg=156) 105 meq/L 98-107 CO2 (BEAKER) (test aoeq=493) 21 meq/L 22-29 BLOOD UREA NITROGEN (BEAKER) (test awqg=314) 18 mg/dL 7-21 CREATININE (BEAKER) (test vkiu=645) 1.26 mg/dL 0.57-1.25 GLUCOSE RANDOM (BEAKER) (test qwfd=201) 416 mg/dL 70-105 CALCIUM (BEAKER) (test virc=002) 9.2 mg/dL 8.4-10.2 AST (SGOT) (BEAKER) (test wdrl=527) 27 U/L 5-34 ALT (SGPT) (BEAKER) (test fpzj=134) 48 U/L 6-55 EGFR (BEAKER) (test nvja=7318) mL/min/1.73 sq m INSUFFICIENT CLINICAL DATA TO CALCULATE ESTIMATED GFR. LACTIC ACID, VENOUS, WHOLE [id number] 16:15:00* Test Item Value Reference Range Comments LACTATE BLOOD VENOUS (2) (BEAKER) (test zaur=2769) 2.9 mmol/L 0.5-2.2 Specimen slightly hemolyzed CBC W/PLT COUNT & AUTO [id number] 16:07:00* Test Item Value Reference Range Comments WHITE BLOOD CELL COUNT (BEAKER) (test jqmu=329) 7.3 K/ L 3.5-10.5 RED BLOOD CELL COUNT (BEAKER) (test ytpu=059) 4.55 M/ L 3.93-5.22 HEMOGLOBIN (BEAKER) (test dvsi=957) 14.1 GM/DL 11.2-15.7 HEMATOCRIT (BEAKER) (test subx=043) 42.2 % 34.1-44.9 MEAN CORPUSCULAR VOLUME (BEAKER) (test ppzj=659) 92.7 fL 79.4-94.8 MEAN CORPUSCULAR HEMOGLOBIN (BEAKER) (test bpjw=620) 31.0 pg 25.6-32.2 MEAN CORPUSCULAR HEMOGLOBIN CONC (BEAKER) (test jjgg=016) 33.4 GM/DL 32.2-35.5 RED CELL DISTRIBUTION WIDTH (BEAKER) (test eskc=607) 12.3 % 11.7-14.4 PLATELET COUNT (BEAKER) (test gdgq=761) 182 K/CU MM 150-450 MEAN PLATELET VOLUME (BEAKER) (test xcll=090) 10.7 fL 9.4-12.3 NUCLEATED RED BLOOD CELLS (BEAKER) (test phyl=469) 0 /100 WBC 0-0 NEUTROPHILS RELATIVE PERCENT (BEAKER) (test rufi=993) 87 % LYMPHOCYTES RELATIVE PERCENT (BEAKER) (test mbhf=430) 10 % MONOCYTES RELATIVE PERCENT (BEAKER) (test oarz=634) 2 % EOSINOPHILS RELATIVE PERCENT (BEAKER) (test ixrp=944) 1 % BASOPHILS RELATIVE PERCENT (BEAKER) (test jmld=873) 0 % NEUTROPHILS ABSOLUTE COUNT (BEAKER) (test ivjj=901) 6.32 K/ L 1.56-6.13 LYMPHOCYTES ABSOLUTE COUNT (BEAKER) (test zbse=336) 0.72 K/ L 1.18-3.74 MONOCYTES ABSOLUTE COUNT (BEAKER) (test veek=924) 0.15 K/ L 0.24-0.36 EOSINOPHILS ABSOLUTE COUNT (BEAKER) (test cvkk=058) 0.05 K/ L 0.04-0.36 BASOPHILS ABSOLUTE COUNT (BEAKER) (test tdtf=057) 0.01 K/ L 0.01-0.08 IMMATURE GRANULOCYTES-RELATIVE PERCENT (BEAKER) (test sfya=4242) 0 % 0-1 KETONE, [id number] 15:59:00* Test Item Value Reference Range Comments KETONES, BLOOD (BEAKER) (test ywrg=0560) 0.6 mmol/L <0.4 POCT-GLUCOSE [id number] 15:29:00* Test Item Value Reference Range Comments POC-GLUCOSE METER (BEAKER) (test ujob=5022) 409 mg/dL 70-[address] [facility] [address] [facility] [address] OVA AND PARASITE [id number] 13:36:00* Test Item Value Reference Range Comments DIRECT SMEAR - O\T\P (BEAKER) (test zzcc=569) No ova or parasites seen No ova or parasites seen CONCENTRATE SMEAR - O\T\P (BEAKER) (test qobo=100) No ova or parasites seen No ova or parasites seen TRICHROME SMEAR - O\T\P (BEAKER) (test xfjd=130) No ova or parasites seen No ova or parasites seen BLOOD [id number] 11:00:00* Test Item Value Reference Range Comments CULTURE (BEAKER) (test nkcx=9183) No growth in 5 days STOOL CULTURE + SHIGA [id number] 14:30:00* Test Item Value Reference Range Comments CULTURE (BEAKER) (test ebsf=7742) No Salmonella, Shigella or Campylobacter isolated POCT-GLUCOSE [id number] 09:13:00* Test Item Value Reference Range Comments POC-GLUCOSE METER (BEAKER) (test vapx=2193) 117 mg/dL 70-[address] [facility] [address] [facility] [address] COMPREHENSIVE METABOLIC [id number] 07:17:00* Test Item Value Reference Range Comments TOTAL PROTEIN (BEAKER) (test zzbo=306) 5.7 gm/dL 6.0-8.3 ALBUMIN (BEAKER) (test pkcn=2221) 3.2 g/dL 3.5-5.0 ALKALINE PHOSPHATASE (BEAKER) (test dghj=411) 55 U/L 40-150 BILIRUBIN TOTAL (BEAKER) (test awml=300) 0.4 mg/dL 0.2-1.2 SODIUM (BEAKER) (test ssag=895) 138 meq/L 136-145 POTASSIUM (BEAKER) (test yvjn=236) 3.3 meq/L 3.5-5.1 CHLORIDE (BEAKER) (test ekge=239) 110 meq/L 98-107 CO2 (BEAKER) (test pxvq=569) 17 meq/L 22-29 BLOOD UREA NITROGEN (BEAKER) (test ynkr=270) 6 mg/dL 7-21 CREATININE (BEAKER) (test bihy=626) 0.64 mg/dL 0.57-1.25 GLUCOSE RANDOM (BEAKER) (test wyyb=577) 108 mg/dL 70-105 CALCIUM (BEAKER) (test nibc=893) 8.5 mg/dL 8.4-10.2 AST (SGOT) (BEAKER) (test ylqp=687) 17 U/L 5-34 ALT (SGPT) (BEAKER) (test sjdk=820) 22 U/L 6-55 EGFR (BEAKER) (test ijkh=2402) mL/min/1.73 sq m INSUFFICIENT CLINICAL DATA TO CALCULATE ESTIMATED GFR. CBC W/PLT COUNT & AUTO [id number] 07:04:00* Test Item Value Reference Range Comments WHITE BLOOD CELL COUNT (BEAKER) (test rvfh=765) 3.8 K/ L 3.5-10.5 RED BLOOD CELL COUNT (BEAKER) (test tnqg=717) 4.46 M/ L 3.93-5.22 HEMOGLOBIN (BEAKER) (test lmtt=207) 13.9 GM/DL 11.2-15.7 HEMATOCRIT (BEAKER) (test tsdi=427) 40.8 % 34.1-44.9 MEAN CORPUSCULAR VOLUME (BEAKER) (test bcvw=120) 91.5 fL 79.4-94.8 MEAN CORPUSCULAR HEMOGLOBIN (BEAKER) (test pidn=815) 31.2 pg 25.6-32.2 MEAN CORPUSCULAR HEMOGLOBIN CONC (BEAKER) (test zhik=563) 34.1 GM/DL 32.2-35.5 RED CELL DISTRIBUTION WIDTH (BEAKER) (test tidh=006) 12.7 % 11.7-14.4 PLATELET COUNT (BEAKER) (test yntc=552) 189 K/CU MM 150-450 MEAN PLATELET VOLUME (BEAKER) (test scww=282) 10.6 fL 9.4-12.3 NUCLEATED RED BLOOD CELLS (BEAKER) (test wikl=431) 0 /100 WBC 0-0 NEUTROPHILS RELATIVE PERCENT (BEAKER) (test onpf=455) 42 % LYMPHOCYTES RELATIVE PERCENT (BEAKER) (test rzbi=574) 36 % MONOCYTES RELATIVE PERCENT (BEAKER) (test sfmq=865) 13 % EOSINOPHILS RELATIVE PERCENT (BEAKER) (test jwkz=422) 3 % BASOPHILS RELATIVE PERCENT (BEAKER) (test rnmu=156) 1 % NEUTROPHILS ABSOLUTE COUNT (BEAKER) (test ywbk=490) 1.59 K/ L 1.56-6.13 LYMPHOCYTES ABSOLUTE COUNT (BEAKER) (test yzcc=792) 1.37 K/ L 1.18-3.74 MONOCYTES ABSOLUTE COUNT (BEAKER) (test edbn=550) 0.50 K/ L 0.24-0.36 EOSINOPHILS ABSOLUTE COUNT (BEAKER) (test xsdg=091) 0.12 K/ L 0.04-0.36 BASOPHILS ABSOLUTE COUNT (BEAKER) (test unah=971) 0.04 K/ L 0.01-0.08 IMMATURE GRANULOCYTES-RELATIVE PERCENT (BEAKER) (test vuzt=7162) 4 % 0-1 STOOL PATH [id number] 00:59:00* Test Item Value Reference Range Comments PATHOGEN EXAM CHARGED (BEAKER) (test osyu=0757) Done POCT-GLUCOSE [id number] 21:29:00* Test Item Value Reference Range Comments POC-GLUCOSE METER (BEAKER) (test kwnp=8377) 109 mg/dL 70-[address] [facility] [address] [facility] [address] POCT-GLUCOSE [id number] 18:28:00* Test Item Value Reference Range Comments POC-GLUCOSE METER (BEAKER) (test sbvm=6637) 111 mg/dL 70-110 TESTED AT [place] [id number] [facility] [address] U/S, ABDOMINAL, [id number] 16:51:00Reason for exam:->abdominal pain, diarrheaFINAL REPORT Abdominal ultrasound Clinical History: Abdominal pain Discussion: Sonographic evaluation of the the abdomen is performed. The liver has normal size and measures 17.8 cm in length. There is elevated liver echogenicity, without focal mass. There is no intra or extrahepatic biliary dilatation. The common bile duct measures 6 mm. The gallbladder has normal appearance, without wall thickening, stones, or pericholecystic fluid. The main portal vein diameter is normal, measuring 11 mm. The pancreatic head, body, and proximal tail demonstrate no abnormality. There is no ascites. The right and the left kidney measure 9.1 and 10.2 cm in length respectively and are normal in size. There is no renal mass, hydronephrosis, or shadowing renal calculus. The spleen measures 9.0 cm in length and is normal in echotexture. Segments of the inferior vena cava and aorta visualized demonstrate no abnormality. Impression: 1. Elevated liver echogenicity most consistent with fatty infiltration. Otherwise, unremarkable abdominal ultrasound. Signed: Jean Paul Sosa MDReport Verified Date/Time: 07/01/2017 16:51:35 Reading Location: [address] Ultrasound Reading Room A TOXIN [id number] 14:58:00* Test Item Value Reference Range Comments SHIGA TOXIN 1 (BEAKER) (test vdxd=0325) Not detected Not detected SHIGA TOXIN 2 (BEAKER) (test evhr=8214) Not detected Not detected POCT-GLUCOSE [id number] 12:03:00* Test Item Value Reference Range Comments POC-GLUCOSE METER (BEAKER) (test bdnm=1961) 119 mg/dL 70-[address] [facility] [address] [facility] [address] POCT-GLUCOSE [id number] 08:34:00* Test Item Value Reference Range Comments POC-GLUCOSE METER (BEAKER) (test enkq=4079) 108 mg/dL 70-[address] [facility] [address] [facility] [address] BASIC METABOLIC [id number] 05:59:00* Test Item Value Reference Range Comments SODIUM (BEAKER) (test yxcv=996) 140 meq/L 136-145 POTASSIUM (BEAKER) (test fmxu=794) 3.4 meq/L 3.5-5.1 CHLORIDE (BEAKER) (test mpxq=704) 112 meq/L 98-107 CO2 (BEAKER) (test rada=290) 20 meq/L 22-29 BLOOD UREA NITROGEN (BEAKER) (test cpsi=710) 6 mg/dL 7-21 CREATININE (BEAKER) (test vsyn=184) 0.60 mg/dL 0.57-1.25 GLUCOSE RANDOM (BEAKER) (test cokw=481) 99 mg/dL 70-105 CALCIUM (BEAKER) (test fiin=711) 8.2 mg/dL 8.4-10.2 EGFR (BEAKER) (test tjhj=8665) mL/min/1.73 sq m INSUFFICIENT CLINICAL DATA TO CALCULATE ESTIMATED GFR. CBC W/PLT COUNT & AUTO [id number] 05:50:00* Test Item Value Reference Range Comments WHITE BLOOD CELL COUNT (BEAKER) (test aaru=709) 3.5 K/ L 3.5-10.5 RED BLOOD CELL COUNT (BEAKER) (test lhwf=981) 4.28 M/ L 3.93-5.22 HEMOGLOBIN (BEAKER) (test kpqf=784) 13.4 GM/DL 11.2-15.7 HEMATOCRIT (BEAKER) (test lpvi=862) 39.6 % 34.1-44.9 MEAN CORPUSCULAR VOLUME (BEAKER) (test lgha=173) 92.5 fL 79.4-94.8 MEAN CORPUSCULAR HEMOGLOBIN (BEAKER) (test mweo=987) 31.3 pg 25.6-32.2 MEAN CORPUSCULAR HEMOGLOBIN CONC (BEAKER) (test rfjs=222) 33.8 GM/DL 32.2-35.5 RED CELL DISTRIBUTION WIDTH (BEAKER) (test uybn=180) 12.6 % 11.7-14.4 PLATELET COUNT (BEAKER) (test eaak=604) 146 K/CU MM 150-450 MEAN PLATELET VOLUME (BEAKER) (test jvlp=106) 10.4 fL 9.4-12.3 NUCLEATED RED BLOOD CELLS (BEAKER) (test tats=882) 0 /100 WBC 0-0 NEUTROPHILS RELATIVE PERCENT (BEAKER) (test rugi=816) 50 % LYMPHOCYTES RELATIVE PERCENT (BEAKER) (test moos=955) 30 % MONOCYTES RELATIVE PERCENT (BEAKER) (test vmtm=348) 17 % EOSINOPHILS RELATIVE PERCENT (BEAKER) (test tlvu=279) 2 % BASOPHILS RELATIVE PERCENT (BEAKER) (test txgr=706) 0 % NEUTROPHILS ABSOLUTE COUNT (BEAKER) (test gamm=739) 1.74 K/ L 1.56-6.13 LYMPHOCYTES ABSOLUTE COUNT (BEAKER) (test dqoj=918) 1.06 K/ L 1.18-3.74 MONOCYTES ABSOLUTE COUNT (BEAKER) (test hznb=605) 0.59 K/ L 0.24-0.36 EOSINOPHILS ABSOLUTE COUNT (BEAKER) (test ssxk=687) 0.08 K/ L 0.04-0.36 BASOPHILS ABSOLUTE COUNT (BEAKER) (test cbsp=859) 0.01 K/ L 0.01-0.08 IMMATURE GRANULOCYTES-RELATIVE PERCENT (BEAKER) (test xtxn=8923) 1 % 0-1 POCT-GLUCOSE [id number] 21:11:00* Test Item Value Reference Range Comments POC-GLUCOSE METER (BEAKER) (test jwsy=4998) 104 mg/dL 70-[address] [facility] [address] [facility] [address] POCT-GLUCOSE [id number] 18:20:00* Test Item Value Reference Range Comments POC-GLUCOSE METER (BEAKER) (test rysl=2642) 135 mg/dL 70-[address] [facility] [address] [facility] [address] CLOSTRIDIUM DIFFICILE TOXIN [id number] 13:32:00* Test Item Value Reference Range Comments CLOSTRIDIUM DIFFICILE TOXIN, PCR (BEAKER) (test rjgs=1663) Not Detected Not Detected This qualitative real-time polymerase chain reaction assay detects the tcdB gene , encoded on the C.difficile pathogenicity locus (PaLoc). The product of tcdB, toxin B, is a cytotoxin essential for causing C.difficile-associated disease (CD AD) and is found in virtually all toxigenic C.difficile.This assay is performed for patients suspected of having either community-acquired or nosocomial CDAD. Accordingly, only symptomatic patients should be tested and formed stools will b e rejected unless ileus is present (i.e., specified when ordering). Patients ma y be colonized with toxigenic C.difficile strains not causing active disease; th erefore, clinical correlation is needed when deciding how to manage patients wit h a positive test result.The assay has not been validated as a test of cure as a mplifiable nucleic acid may persist after effective treatment; therefore, follow -up testing of a positive result is not recommended.POCT-GLUCOSE [id number] 12:54:00* Test Item Value Reference Range Comments POC-GLUCOSE METER ([employer]) (test bnnq=4240) 121 mg/dL 70-110 TESTED AT [place] [address] POCT-GLUCOSE [id number] 08:36:00* Test Item Value Reference Range Comments POC-GLUCOSE METER ([employer]) (test awss=0336) 127 mg/dL 70-110 TESTED AT [place] [id number] POCT-GLUCOSE [id number] 04:25:00* Test Item Value Reference Range Comments POC-GLUCOSE METER ([employer]ideos[employer]) (test crwa=8416) 194 mg/dL 70-110 TESTED AT [place] [address] CBC W/PLT COUNT & AUTO [id number] 01:52:00* Test Item Value Reference Range Comments WHITE BLOOD CELL COUNT (Pure TechnologiesAKER) (test fofi=321) 4.4 K/ L 3.5-10.5 RED BLOOD CELL COUNT (BEAKER) (test kqvm=505) 5.21 M/ L 3.93-5.22 HEMOGLOBIN (BEAKER) (test sqpd=991) 16.3 GM/DL 11.2-15.7 HEMATOCRIT (BEAKER) (test unfi=747) 46.8 % 34.1-44.9 MEAN CORPUSCULAR VOLUME (BEAKER) (test nqdu=894) 89.8 fL 79.4-94.8 MEAN CORPUSCULAR HEMOGLOBIN (BEAKER) (test uzsn=161) 31.3 pg 25.6-32.2 MEAN CORPUSCULAR HEMOGLOBIN CONC (BEAKER) (test rvam=470) 34.8 GM/DL 32.2-35.5 RED CELL DISTRIBUTION WIDTH (BEAKER) (test dixd=833) 12.5 % 11.7-14.4 PLATELET COUNT (BEAKER) (test jykq=653) 160 K/CU MM 150-450 MEAN PLATELET VOLUME (BEAKER) (test xxlo=507) 11.3 fL 9.4-12.3 NUCLEATED RED BLOOD CELLS (BEAKER) (test rqwa=558) 0 /100 WBC 0-0 NEUTROPHILS RELATIVE PERCENT (BEAKER) (test maua=890) 62 % LYMPHOCYTES RELATIVE PERCENT (BEAKER) (test lkdu=980) 19 % MONOCYTES RELATIVE PERCENT (BEAKER) (test flqm=266) 17 % EOSINOPHILS RELATIVE PERCENT (BEAKER) (test czug=007) 1 % BASOPHILS RELATIVE PERCENT (BEAKER) (test ubsj=230) 1 % NEUTROPHILS ABSOLUTE COUNT (BEAKER) (test hmgj=539) 2.76 K/ L 1.56-6.13 LYMPHOCYTES ABSOLUTE COUNT (BEAKER) (test nece=186) 0.83 K/ L 1.18-3.74 MONOCYTES ABSOLUTE COUNT (BEAKER) (test xkxt=718) 0.77 K/ L 0.24-0.36 EOSINOPHILS ABSOLUTE COUNT (BEAKER) (test izjp=757) 0.02 K/ L 0.04-0.36 BASOPHILS ABSOLUTE COUNT (BEAKER) (test mtvo=260) 0.02 K/ L 0.01-0.08 IMMATURE GRANULOCYTES-RELATIVE PERCENT (BEAKER) (test jrsl=5155) 1 % 0-1 (MANUAL DIFFERENTIAL)2017-06-30 01:52:00* Test Item Value Reference Range Comments NEUTROPHILS - REL (DIFF) (BEAKER) (test rogn=4730) 14 % LYMPHOCYTES - REL (DIFF) (BEAKER) (test zoxh=1840) 21 % MONOCYTES - REL (DIFF) (BEAKER) (test toni=1561) 16 % BASOPHILS - REL (DIFF) (BEAKER) (test xwjf=9953) 1 % BANDS - REL (DIFF) (BEAKER) (test lkzj=9908) 48 % 0-10 NEUTROPHILS - ABS (DIFF) (BEAKER) (test rthe=6555) 0.62 K/ L 1.80-8.00 LYMPHOCYTES - ABS (DIFF) (BEAKER) (test hfgz=6301) 0.92 K/ L 1.48-4.50 MONOCYTES - ABS (DIFF) (BEAKER) (test gdgk=9436) 0.70 K/ L 0.00-1.30 BASOPHILS - ABS (DIFF) (BEAKER) (test vycf=2293) 0.04 K/ L 0.00-0.20 BANDS-ABS (DIFF) (BEAKER) (test uyym=4248) 2.1 K/ L 0.0-0.8 TOTAL COUNTED (BEAKER) (test gqhd=6864) 100 BANDS + SEGMENTED NEUTROPHILS (BEAKER) (test ertl=9702) 2.73 PLASMACYTOID LYMPHS(BEAKER) (test vnel=6988) Present VACUOLATED NEUTROPHILS (BEAKER) (test spuu=200) Present GIANT PLATELETS (BEAKER) (test shsa=115) Present SPHEROCYTES (BEAKER) (test vrlj=659) 1+ few COMPREHENSIVE METABOLIC [id number] 00:40:00* Test Item Value Reference Range Comments TOTAL PROTEIN (BEAKER) (test tbgi=061) 7.2 gm/dL 6.0-8.5 ALBUMIN (BEAKER) (test fwtm=7142) 3.9 g/dL 3.5-5.0 ALKALINE PHOSPHATASE (BEAKER) (test dqbm=607) 90 U/L 30-115 BILIRUBIN TOTAL (BEAKER) (test juhu=272) 0.8 mg/dL 0.1-1.2 SODIUM (BEAKER) (test srgo=464) 131 meq/L 135-148 POTASSIUM (BEAKER) (test ffqn=308) 4.0 meq/L 3.6-5.5 CHLORIDE (BEAKER) (test wovp=773) 97 meq/L 98-106 CO2 (BEAKER) (test sonu=348) 19 meq/L 24-32 BLOOD UREA NITROGEN (BEAKER) (test usfr=617) 14 mg/dL 10-26 CREATININE (BEAKER) (test coom=592) 0.72 mg/dL 0.50-1.20 GLUCOSE RANDOM (BEAKER) (test yduj=174) 209 mg/dL 70-110 CALCIUM (BEAKER) (test gamo=644) 9.0 mg/dL 8.5-10.5 AST (SGOT) (BEAKER) (test bljz=082) 27 U/L 5-40 ALT (SGPT) (BEAKER) (test yetf=425) 45 U/L 5-50 EGFR (BEAKER) (test vhqs=9947) mL/min/1.73 sq m INSUFFICIENT CLINICAL DATA TO CALCULATE ESTIMATED GFR. [id number] 00:36:00* Test Item Value Reference Range Comments LIPASE (BEAKER) (test rxjc=962) 97 U/L 40-240 LACTIC ACID, VENOUS, WHOLE [id number] 00:33:00* Test Item Value Reference Range Comments LACTATE BLOOD VENOUS (2) (BEAKER) (test zzpe=0581) 1.1 mmol/L 0.5-2.2 Effective 02/28/2016: Units/Reference Range ChangeNew: 0.5-2.2 mmol/L Previous: 5 -18 mg/dLURINALYSIS W/ REFLEX URINE [id number] 00:10:00* Test Item Value Reference Range Comments COLOR (BEAKER) (test uilk=271) Yellow CLARITY (BEAKER) (test fyrw=103) Clear SPECIFIC GRAVITY UA (BEAKER) (test dwvk=181) 1.015 1.001-1.035 PH UA (BEAKER) (test srbg=492) 5.5 5.0-8.0 PROTEIN UA (BEAKER) (test xorj=126) 30 mg/dL Negative GLUCOSE UA (BEAKER) (test jxce=093) 500 mg/dL Negative KETONES UA (BEAKER) (test yybs=117) 80 mg/dL Negative BILIRUBIN UA (BEAKER) (test mgdj=820) Negative Negative BLOOD UA (BEAKER) (test glni=494) Small Negative NITRITE UA (BEAKER) (test rzgf=151) Positive Negative LEUKOCYTE ESTERASE UA (BEAKER) (test qxfi=168) Negative Negative UROBILINOGEN UA (BEAKER) (test bqcu=451) 0.2 mg/dL 0.2-1.0 BACTERIA (BEAKER) (test lrim=654) Few RBC UA-MANUAL (BEAKER) (test nljl=9868) <5 /HPF WBC UA-MANUAL (BEAKER) (test vovg=6371) <5 /HPF SQUAMOUS EPITHELIAL MANUAL (BEAKER) (test hssc=5989) <5 /HPF SOURCE(BEAKER) (test vzxa=3406)
[2019-03-27] MEDS ORDERED: KETOROLAC TROMETHAMINE 30 MG/ML VIAL IM STA (15:54)
[2019-03-27] MEDS ORDERED: KETOROLAC TROMETHAMINE 30 MG/ML VIAL ONE (16:29)
--- NOTE | 2019-03-27 17:31 | Diagnostic Imaging Report ---
Lumbar Spine Radiographs: 3 views HISTORY: Pain COMPARISON: None available. DISCUSSION: There are 4 non-rib bearing lumbar vertebral bodies. Transitional vertebra with bilateral effusions. Slight grade 1 anterolisthesis of L4 in relation to L5. No displaced fracture or compression deformity is identified. The disc spaces are well maintained. Facet arthropathy at L4-L5 and L5-S1. Vascular calcifications. IMPRESSION: Facet arthropathy at L4-L5 and L5-S1. Signed by: Dr. Duy Gomez M.D. on 03/27/2019 5:27 PM
[2019-03-27 20:02] VITALS: BP 147/80
== END 2019-03-27 18:40 | disposition home or self-care (01) ==
LOC: FSED 15:24
DX: M54.5 Low back pain (principal); S39.012A Strain of muscle, fascia and tendon of lower back, initial encounter; X50.0XXA Overexertion from strenuous movement or load, initial encounter; N30.91 Cystitis, unspecified with hematuria; E11.9 Type 2 diabetes mellitus without complications
CPT/HCPCS: 72100; 80048; 81003; 85025; 87086; 87186; 96372; 99283; J1885